=== PATIENT | male | born 1950 | race Caucasian/White ===

== ENCOUNTER → 2019-12-13 | Outpatient (CLI) | payer MEDICARE ==
[~2019-12-13] MED LIST: ATOR10TA9 PO; CARV3.122 PO; LOSA50TA14 PO
[2019-12-13 15:29] LABS: ALANINE AMINOTRANSFERASE 26 U/L (12-78); ALBUMIN 3.8 g/dL (3.4-5.0); ANION GAP 4 mmol/L (5-15); CHLORIDE 108 mmol/L (98-107); CREATININE 1.19 mg/dL (0.7-1.3)
[2019-12-13 15:32] LABS: ALKALINE PHOSPHATASE 84 U/L (45-117); BILIRUBIN,TOTAL 0.4 mg/dL (0.2-1.0); TOTAL PROTEIN 7.4 g/dL (6.4-8.2)
== END | disposition home or self-care (01) ==
LOC: STAR 13:49
PROVIDERS: ATTEND Surgery
DX: Z01.818 Encounter for other preprocedural examination (principal); K44.9 Diaphragmatic hernia without obstruction or gangrene; I44.7 Left bundle-branch block, unspecified; R00.1 Bradycardia, unspecified
CPT/HCPCS: 36415; 80053; 93005

== ENCOUNTER 2020-02-20 08:16 | Day surgery (SDC) | payer MEDICARE ==
[~2020-02-20] VITALS: Ht 162.6 cm; Wt 59.0 kg
[~2020-02-20 08:16] MED LIST changes: +BUPIVACAINE/PF-EPI 0.5% 1:200K ONE
[2020-02-20 08:40] VITALS: BP 131/82
[2020-02-20] MEDS ORDERED: LACTATED RINGERS 1,000 ML IV SCH (08:44)
[2020-02-20] MEDS ORDERED: CHLORHEXIDINE 15 ML UDC ONE (08:45)
[2020-02-20] MEDS ORDERED: CHLORHEXIDINE 15 ML UDC MM ONE (09:00)
[2020-02-20] MEDS ORDERED: HALOPERIDOL 5 MG/ML IV PRN (09:30)
[2020-02-20] MEDS ORDERED: HYDROmorphone 1 MG/ML, 1ML INJ IVPush PRN (09:30)
[2020-02-20] MEDS ORDERED: PROMETHAZINE 25 MG/ML, 1ML IVPush PRN (09:30)
[2020-02-20] MEDS ORDERED: LABETALOL 5MG/ML, 20ML IV PRN (09:30)
[2020-02-20] MEDS ORDERED: MEPERIDINE/PF 25MG/0.5ML IVPush PRN (09:30)
[2020-02-20] MEDS ORDERED: OXYcodone 5 MG/5 ML ORAL.SOL UDC PO PRN (09:30)
[2020-02-20] MEDS ORDERED: hydrALAzine 20 MG/ML, 1ML IV PRN (09:30)
[2020-02-20] MEDS ORDERED: FENTANYL PF 100 MCG/2ML IV PRN (09:30)
[2020-02-20] MEDS ORDERED: FENTANYL PF 250 MCG/5ML ONE (09:38)
[2020-02-20] MEDS ORDERED: EPHEDRINE 50 MG/ML, 1ML ONE (09:44)
[2020-02-20] MEDS ORDERED: DEXAMETHASONE 4 MG/ML, 1ML ONE (10:52)
[2020-02-20] MEDS ORDERED: GLYCOPYRROLATE 0.2MG/1ML, 5ML ONE (10:52)
[2020-02-20] MEDS ORDERED: ONDANSETRON 2MG/ML, 2ML ONE (10:52)
[2020-02-20] MEDS ORDERED: PROPOFOL 10 MG/ML, 20ML ONE (10:52)
[2020-02-20] MEDS ORDERED: ROCURONIUM 10MG/ML,5ML ONE (10:52)
[2020-02-20] MEDS ORDERED: CEFAZOLIN 1,000 MG ONE (10:52)
[2020-02-20] MEDS ORDERED: SUCCINYLCHOLINE 20 MG/ML, 10ML ONE (10:52)
[2020-02-20] MEDS ORDERED: NEOSTIGMINE 1 MG/ML, 10ML ONE (10:52)
== END 2020-02-20 17:30 | disposition home or self-care (01) ==
LOC: OUT 08:16
PROVIDERS: ATTEND Surgery
DX: K40.91 Unilateral inguinal hernia, without obstruction or gangrene, recurrent (principal); I10 Essential (primary) hypertension; I42.9 Cardiomyopathy, unspecified; E78.5 Hyperlipidemia, unspecified; Z79.899 Other long term (current) drug therapy; Z98.890 Other specified postprocedural states; Z82.49 Family history of ischemic heart disease and other diseases of the circulatory system
CPT/HCPCS: 49651; C1781; J0330; J0690; J1100; J2405; J2704; J2710; J3010; J7120; U0001

== ENCOUNTER 2020-02-20 21:43 | Emergency (ER) | payer MEDICARE ==
[~2020-02-20] VITALS: Ht 162.6 cm; Wt 62.4 kg
[~2020-02-20 21:43] MED LIST changes: -BUPIVACAINE/PF-EPI 0.5% 1:200K ONE
--- NOTE | 2020-02-20 22:25 | NUR ---
PT RESTING ON [facility], MONITORS APPIED, SIDERAIL SUP X2, CALL LIGHT WITHIN REACH
--- NOTE | 2020-02-20 22:38 | NUR ---
TASK RN: SAMEER GUTIERREZ PT RESTING ON [facility], AT BS, NAD, RESP WNL, FCS no SOB, P/W/D, DENIED ADDITIONAL NEEDS, CALL LIGHT ON LAP. UA SENT TO LAB.
[2020-02-20 22:58] VITALS: BP 117/56
--- NOTE | 2020-02-20 22:58 | NUR ---
PT RESTING ON GURNEY, DENIES NEEDS, CAALL LIGHT WITHIN REACH, URINE CATHETER DRAINING CLEAR YELLOW OUTPUT. AWAITING URINE LAB RESULT
[2020-02-20 23:13] LABS: MICROSCOPIC INDICATED
== END 2020-02-20 23:41 | disposition home or self-care (01) ==
LOC: ED 23:35
DX: N40.1 Benign prostatic hyperplasia with lower urinary tract symptoms (principal); R33.8 Other retention of urine; R10.30 Lower abdominal pain, unspecified
CPT/HCPCS: 51702; 81001; 87086; 99284